=== PATIENT | male | born 1965 | race Caucasian/White ===

== ENCOUNTER → 2016-08-15 | Outpatient (CLI) | payer BC ==
[~2016-08-15] MED LIST: ANT25 PO; ASCA500 PO; ASCO100061 PO; ASPI81TA28 PO; MULT-506 PO; ONDA4TAB10 SL
--- NOTE | 2016-08-15 14:10 | DIAGNOSTIC IMAGING REPORT ---
RIGHT HIP UNILATERAL 2 VIEWS CLINICAL HISTORY: Right hip pain COMPARISON: None. DISCUSSION: No acute fractures are visualized. There are osteoarthritic changes present with femoral head osteophytes. No destructive lesions are evident. IMPRESSION: 1. Osteoarthritic changes 2. No acute fractures Electronically signed by: Stefan Herrera M.D. 08/15/2016 2:09 PM Dictated Date/Time: 08/15/2016 2:08 PM
== END | disposition home or self-care (01) ==
LOC: C.RAD 13:47
PROVIDERS: ATTEND Nurse Practitioner Family
DX: M25.551 Pain in right hip (principal)

== ENCOUNTER 2017-02-27 21:16 | Emergency (ER) | payer BC ==
[~2017-02-27] VITALS: Ht 180.3 cm; Wt 87.2 kg
[~2017-02-27 21:16] MED LIST changes: -ANT25 PO; -ASCO100061 PO; -MULT-506 PO; -ONDA4TAB10 SL
[2017-02-27 21:20] VITALS: TEMP 36.4; Ht 180.3 cm; Wt 87.2 kg
[2017-02-27] MEDS ORDERED: MULT-506 PO (21:31)
[2017-02-27] MEDS ORDERED: ASCO100061 PO (21:51)
[2017-02-27] MEDS ORDERED: SODIUM CHLORIDE 0.9% 1000ML 1,000 ML IV STA (21:54)
[2017-02-27] MEDS ORDERED: LORAZEPAM 2 MG/ML 1 ML VIAL IV STA (21:54)
[2017-02-27] MEDS ORDERED: MECLIZINE HCL 25 MG TAB PO STA (21:54)
[2017-02-27] MEDS ORDERED: OPTIRAY 320 IV PRN (22:00)
[2017-02-27 22:31] LABS: BASO % 0.1 %; BASO ABS # 0.01 K/uL (0-0.2); COMPLETE YES; EOS % 0.7 %; HEMATOCRIT 42.3 % (42-52); IG% 0.1 %; LYMPH % 14.8 %; LYMPH ABS # 1.31 K/uL (1.2-3.4); MEAN CELL VOLUME 86.3 fL (80-100); MEAN CORPUSCULAR HEMOGLOBIN 30.6 pg (25-34); MEAN CORPUSCULAR HGB CONC 35.5 g/dl (32-36); MEAN PLATELET VOLUME 8.8 fL (7.4-10.4); NEUT % 76.3 %; PLATELET COUNT 228 K/uL (130-400); WHITE BLOOD COUNT 8.88 K/uL (4.8-10.8)
[2017-02-27 22:51] LABS: CREATININE 0.89 mg/dl (0.60-1.40)
[2017-02-27 22:52] LABS: ALB/GLOB RATIO 1.2 (0.9-2); BUN/CREATININE RATIO 15.6 (10-20); CALCIUM 8.8 mg/dl (8.5-10.1); POTASSIUM 3.5 mmol/L (3.5-5.1)
[2017-02-27 22:59] LABS: THYROID STIMULATING HORMONE 1.57 uIu/ml (0.300-4.500)
--- NOTE | 2017-02-27 23:39 | EMERGENCY ROOM VISIT NOTE ---
History Report prepared by Ludy: Ann Griffith Under the Supervision of: Dr. Robbie Álvarez M.D. First contact with patient: 21:47 Chief Complaint: DIZZY Stated Complaint: ROOM SPINNING, ARM NUMB, NAUSEA' History of Present Illness The patient is a 51 year old male who presents to the Emergency Room with complaints of worsening dizziness starting last night. The patient states that he was loading groceries into his car and noticed he was dizzy every time he would bend over. He states that this morning he went to work and then came home to watch the [employer] game. He states while watching the game he noticed it worsened. He states that he feels like the room is spinning. He notes that he feels a pressure in the back of his head and ears. The patient states that his right arm feels tight like "someone is squeezing it." He reports that the same sensation has moved into his left palm. The patient complains of nausea, his arms feeling heavy, and he feels slow when walking. The patient denies a headache, ever having vertigo, a cough, congestion, vomiting, and a cardiac history. Source of History: patient Onset: last night Position: other (global) Quality: other (global) Timing: worsening Associated Symptoms: + nausea, No headache, No cough, No vomiting Note: The patient complains of his arms feeling heavy and slow when walking. The patient denies every having vertigo, congestion, and a cardiac history. Review of Systems See HPI for pertinent positives & negatives. A total of 10 systems reviewed and were otherwise negative. Past Medical & Surgical Medical Problems: (1) No Known Active Medical Problems Family History No pertinent family history Social History Smoking Status: Never Smoker Drug Use: none Marital Status: Housing Status: lives with family Occupation Status: employed Current/Historical Medications Scheduled Ascorbic Acid (Ascorbic Acid), 1,000 MG PO DAILY Meclizine HCl (Meclizine HCl), 1 TAB PO Q6 Multivitamin (Multivitamin), 1 TAB PO DAILY Ondasetron Odt (Zofran Odt), 4 MG SL Q6H Allergies Coded Allergies: No Known Allergies (Unverified , 09/17/15) Physical Exam Vital Signs Date Time Temp Pulse Resp B/P (MAP) Pulse Ox O2 Delivery O2 Flow Rate FiO2 02/27/17 23:47 64 16 95/56 94 Room Air 02/27/17 22:29 65 02/27/17 21:20 36.4 65 18 150/85 96 Room Air Physical Exam GENERAL: Patient is in no acute distress. HEENT: No acute trauma, normocephalic atraumatic, mucous membranes moist, no nasal congestion, no scleral icterus. Pupils are equal and reactive to light. TMs are clear. No nystagmus. NECK: No stridor, no adenopathy, no meningismus, trachea is midline. LUNGS: Clear to auscultation bilaterally, no wheeze, no rhonchi, breath sounds equal. HEART: Without murmurs gallops or rubs, regular rate and rhythm. ABDOMEN: Soft, nontender, bowel sounds positive, no hernias, no peritonitis. EXTREMITIES: No cyanosis or edema, full range of motion of all the joints without pain or difficulty, no signs for acute trauma. NEUROLOGIC: Oriented x 3, no acute motor or sensory deficits, no focal weakness. No speech slur or facial droop. No pronator drift or cerebellar dysfunction. SKIN: No rash, no jaundice, no diaphoresis. Medical Decision & Procedures ER Provider Diagnostic Interpretation: Radiology results as stated below per my review and radiologist interpretation: CTA HEAD: Comparison non contrast Ct head 03/26/10. No intracranial hemorrhage. No mass effect. No large vessel occlusion, aneurysm or other vascular etiology for patient's symptoms identified. Radiologist: Macario Sarmiento M.D. Study ready at 23:37 and initial results transmitted at 00:30. Laboratory Results 02/27/17 22:18 Red Blood Count 4.90, Mean Corpuscular Volume 86.3, Mean Corpuscular Hemoglobin 30.6, Mean Corpuscular Hemoglobin Concent 35.5, Mean Platelet Volume 8.8, Neutrophils (%) (Auto) 76.3, Lymphocytes (%) (Auto) 14.8, Monocytes (%) (Auto) 8.0, Eosinophils (%) (Auto) 0.7, Basophils (%) (Auto) 0.1, Neutrophils # (Auto) 6.78, Lymphocytes # (Auto) 1.31, Monocytes # (Auto) 0.71, Eosinophils # (Auto) 0.06, Basophils # (Auto) 0.01 02/27/17 22:18 Test 02/27/17 22:18 White Blood Count 8.88 K/uL (4.8-10.8) Red Blood Count 4.90 M/uL (4.7-6.1) Hemoglobin 15.0 g/dL (14.0-18.0) Hematocrit 42.3 % (42-52) Mean Corpuscular Volume 86.3 fL (80-100) Mean Corpuscular Hemoglobin 30.6 pg (25-34) Mean Corpuscular Hemoglobin Concent 35.5 g/dl (32-36) Platelet Count 228 K/uL (130-400) Mean Platelet Volume 8.8 fL (7.4-10.4) Neutrophils (%) (Auto) 76.3 % Lymphocytes (%) (Auto) 14.8 % Monocytes (%) (Auto) 8.0 % Eosinophils (%) (Auto) 0.7 % Basophils (%) (Auto) 0.1 % Neutrophils # (Auto) 6.78 K/uL (1.4-6.5) Lymphocytes # (Auto) 1.31 K/uL (1.2-3.4) Monocytes # (Auto) 0.71 K/uL (0.11-0.59) Eosinophils # (Auto) 0.06 K/uL (0-0.5) Basophils # (Auto) 0.01 K/uL (0-0.2) RDW Standard Deviation 38.1 fL (36.4-46.3) RDW Coefficient of Variation 12.1 % (11.5-14.5) Immature Granulocyte % (Auto) 0.1 % Immature Granulocyte # (Auto) 0.01 K/uL (0.00-0.02) Anion Gap 7.0 mmol/L (3-11) Est Creatinine Clear Calc Drug Dose 102.2 ml/min Estimated GFR () 113.1 Estimated GFR (Non- 97.6 BUN/Creatinine Ratio 15.6 (10-20) Calcium Level 8.8 mg/dl (8.5-10.1) Total Bilirubin 1.1 mg/dl (0.2-1) Aspartate Amino Transf (AST/SGOT) 22 U/L (15-37) Alanine Aminotransferase (ALT/SGPT) 32 U/L (12-78) Alkaline Phosphatase 53 U/L (45-117) Total Protein 7.4 gm/dl (6.4-8.2) Albumin 4.0 gm/dl (3.4-5.0) Globulin 3.4 gm/dl (2.5-4.0) Albumin/Globulin Ratio 1.2 (0.9-2) Thyroid Stimulating Hormone (TSH) 1.570 uIu/ml (0.300-4.500) Laboratory results reviewed by me. Medications Administered Medications (Trade) Dose Ordered Sig/Sherin Route Start Time Stop Time Status Last Admin Dose Admin Sodium Chloride 1,000 ml @ 999 mls/hr Q1H1M STAT IV 02/27/17 21:54 02/27/17 22:54 DC 02/27/17 22:23 999 MLS/HR Meclizine HCl (Antivert Tab) 25 mg NOW STAT PO 02/27/17 21:54 02/27/17 21:59 DC 02/27/17 22:10 25 MG Lorazepam (Ativan Inj) 0.5 mg NOW STAT IV 02/27/17 21:54 02/27/17 21:59 DC 02/27/17 22:23 0.5 MG ECG Indication: other (dizziness) Rate (beats per minute): 66 Rhythm: normal sinus Findings: no acute ischemic change, no ectopy ED Course 2147: The patient was evaluated in room B9. A complete history and physical exam was performed. 2153: Ordered Ativan Inj 0.5 mg IV, Antivert Tab 25 mg PO, NSS 1000 ml @ 999 mls /hr IV. 0033: Reevaluated the patient. Discussed results and discharge instructions: he verbalized understanding and agreement. The patient is ready for discharge. Medical Decision Differential diagnoses include vertigo, dehydration, viral illness, electrolyte imbalance, anemia, stroke, infection. There is no leukocytosis or concerning anemia. No significant electrolyte abnormality, kidney failure or hepatitis. The patient appears to be in a euthyroid state. EKG shows a sinus rhythm, no acute ischemia. Brain CT shows no acute bleed or mass effect. CTA did not show evidence for stroke or mass. On exam, the patient had no focal neurologic deficits. He was not febrile or toxic. The patient presents with what sounds like vertigo. His symptoms do worsen with position change. He did receive IV saline, oral meclizine and IV Ativan. He is resting comfortably. He seems to be doing well. The patient likely has vertigo. This illness may be viral. I do think he can be discharged. Meclizine for vertigo, Zofran for nausea. If things are worsening, he can return for reassessment. He should see his doctor this week. Of note, I did initially want to have an MRI of the brain performed, he cannot tolerate tight spaces and did refuse the MRI testing. The CT and CTA was done instead. Impression Primary Impression: Vertigo Additional Impression: Nausea Scribe Attestation The scribe's documentation has been prepared under my direction and personally reviewed by me in its entirety. I confirm that the note above accurately reflects all work, treatment, procedures, and medical decision making performed by me. Departure Information Dispostion Home / Self-Care Prescriptions Ondasetron Odt (ZOFRAN ODT) 4 Mg Tab 4 MG SL Q6H for Nausea, #12 TAB Prov: Robbie Álvarez M.D. 02/28/17 Meclizine HCl (Meclizine HCl) 25 Mg Tab 1 TAB PO Q6, #12 TAB Prov: Robbie Álvarez M.D. 02/28/17 Referrals Devi Sheriff C.R.N.P. (PCP) Forms HOME CARE DOCUMENTATION FORM, IMPORTANT VISIT INFORMATION Patient Instructions My [facility] Additional Instructions rest fluids meclizine 1 tab as needed every 6 hours for vertigo zofran 1 tab as needed every 6 hours for nausea see linda dickens for a recheck this week return if worsening as discussed lab testing and imaging was all ok today Problem Qualifiers
[2017-02-28] MEDS ORDERED: ANT25 PO (00:38)
[2017-02-28] MEDS ORDERED: ONDA4TAB10 SL (00:38)
[2017-02-28] MEDS ORDERED: MECLIZINE HCL 25MG HOME PACK PO ONE (00:45)
[2017-02-28] MEDS ORDERED: ONDANSETRON HOME PACK 4MG OD TAB PO ONE (00:45)
[2017-02-28 00:51] VITALS: BP 101/54; PULSE 67; O2SAT 98
--- NOTE | 2017-02-28 06:03 | DIAGNOSTIC IMAGING REPORT ---
ANGIOGRAPHY HEAD COMBO HISTORY: Mental status change neuropathy TECHNIQUE: Multiaxial CT images of the head were performed both before and after the intravenous administration of contrast to evaluate the major cerebral vessels. Maximum intensity projection images were also obtained. A dose lowering technique was utilized adhering to the principles of ALARA. COMPARISON: None. FINDINGS: There is no mass, hematoma, midline shift, or acute infarct. Visualized intracranial internal carotid arteries, distal vertebral arteries, and basilar artery are widely patent. There is no significant stenosis, occlusion, or aneurysm seen within the bilateral ACAs, MCAs, or packager machine. IMPRESSION: No significant stenosis, occlusion, or aneurysm within the [place]. Negative unenhanced CT scan of the brain The above report was generated using voice recognition software. It may contain grammatical, syntax or spelling errors. Electronically signed by: Martin Newell M.D. 02/28/2017 6:01 AM Dictated Date/Time: 02/28/2017 6:01 AM
== END 2017-02-28 00:50 | disposition home or self-care (01) ==
LOC: C.EDB 21:17
DX: R42 Dizziness and giddiness (principal); R11.0 Nausea; Z79.899 Other long term (current) drug therapy